=== PATIENT | female | born 1985 | race Caucasian/White ===

== ENCOUNTER 2023-02-02 08:47 | Outpatient (AMB) | payer OTHER, SELFPAY ==
--- NOTE | 2023-02-02 09:02 | A.OFFPC_ITS ---
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 Accompanied by: Mother Allergies ibuprofen Allergy (Severe, Verified 02/02/23 09:15) face swelling Medication List - Last Reconciled 02/02/23 by Jarvis Fisher PA-C etonogestrel (Nexplanon) subdermal Tobacco use date assessed: 02/02/23 Dental Screening Dental Screen Date: 02/02/23 Did you have a dental visit in the last 12 months?: No Did you have a dental problem in the last 6 months where you did not have access to dental care?: No Was dental information given to patient?: Patient has dentist HPI 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 Patient has past medical history of obesity. concerns--> patient concerned about her weight, she reports she has been trying to lose weight with being more physically active and adapting to better eating habits still has not been successful. Would like to try medication to help her with weight loss. Also has been dealing with left-sided sciatica for many years now and does have flares for time to time. She uses Tylenol and back stretches with some relief of her pain. 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 Vaccine : UTD With COVID vaccine , need Tdap , declines Flu PFSH Surgical History (Updated 02/02/23 @ 09:20 by Jarvis Fisher PA-C) Hx of cholecystectomy Family History (Updated 02/02/23 @ 09:20 by Jarvis Fisher PA-C) Maternal Aunt Breast cancer Father DMII (diabetes mellitus, type 2) Mother High cholesterol Social History (Updated 02/02/23 @ 09:21 by Jarvis Fisher PA-C) Housing: House Alcohol intake: current Alcohol intake frequency: a few times a month Patient Tobacco Use Status: Never used Tobacco e-Cigarette/Vaping Use: Never Used Substance Use Type: Marijuana service: No Current occupational status: employed 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 1. Little interest or pleasure in doing things: not at all 2. Feeling down, depressed, or hopeless: not at all 3. Trouble falling or staying asleep, or sleeping too much: not at all 4. Feeling tired or having little energy: not at all 5. Poor appetite or overeating: not at all 6. Feeling bad about yourself - or that you are a failure or have let yourself or your family down: not at all 7. Trouble concentrating on things, such as reading the newspaper or watching television: not at all 8. Moving or speaking so slowly that other people could have noticed. Or the opposite - being so fidgety or restless that you have been moving around a lot more than usual: not at all 9. Thoughts that you would be better off or of hurting yourself in some way: not at all Total score: 0 Depression Screening Interpretation: Negative 19450 - PHQ-9 Billing: Yes Source: Developed by Drs. Gustavo Juan, China Florian, Eder Jones and colleagues, with an educational gillian from [employer]. Thrive Questionnaire Date Thrive assessed: 02/02/23 I am a: Patient What is your living situation today?: I have a steady place to live Within the past 12 months, did the food you bought not last and you didn't have the money to get more?: Never true Within the past 12 months, did you worry whether your food would run out before you got money to buy more?: Never true Do you have trouble paying for medicines?: No Do you have trouble getting transportation to medical appointments?: No Do you have trouble paying your heating and electricity bill?: No Do you have trouble taking care of your child, family member or friend?: No Do you have trouble with day-to-day activities such as bathing, preparing meals, shopping, managing finances, etc.?: No Are you currently unemployed and looking for a job?: No Are you interested in more education?: No Please select the resources that you would like help with: None Currently or been in a relationship where the following occur: no concerns reported AUDIT C Alcohol Use Questionnaire (AUDIT-C) 1. How often do you have a drink containing alcohol?: Monthly or less 3. How often do you have six or more drinks on one occasion?: Less than monthly Total Score: 2 ROCCO-7 AMB Questionnaire ROCCO-7 Date ROCCO - 7 assessed: 02/02/23 Feeling nervous, anxious, or on edge: 0 = Not at all Not being able to stop or control worryin = Not at all Worrying too much about different things: 0 = Not at all Trouble relaxin = Not at all Being so restless that it is hard to sit still: 0 = Not at all Becoming easily annoyed or irritable: 0 = Not at all Feeling afraid as if something awful might happen: 0 = Not at all Total ROCCO-7 score (0-4 normal; 5-9 mild; 10-14 moderate; 15-21 severe): 0 Source: Developed by Drs. Gustavo Juan, China Florian, Eder Jones and colleagues, with an educational gillian from [employer]. ROCCO-7 Assessment Billing ROCCO-7 Assessment Tool: ROCCO-7 Assessment 55007 Review of Systems Const Denies body aches, Denies chills, Denies excessive sweating, Denies fatigue, Denies fever(s) and Denies headache(s) Eyes Denies blurry vision ENT Denies dysphagia, Denies vertigo, Denies dizziness, Denies headache(s), Denies hearing loss and Denies tinnitus Card Denies chest pain, Denies chest pain with activity, Denies syncope, Denies irregular heart rhythm and Denies dyspnea Resp Denies chest congestion, Denies cough, Denies hemoptysis, Denies dyspnea and Denies wheezing GI Denies abdominal pain, Denies melena, Denies hematochezia, Denies coffee ground emesis, Denies dysphagia, Denies diarrhea, Denies nausea and Denies vomiting Denies urinary frequency, Denies dysuria, Denies urinary hesitancy and Denies urinary urgency Musc Denies arthralgias, Denies limited range of motion, Denies muscle cramps and Denies muscle weakness Skin/Breast Denies rash and Denies skin ulcer Neuro Denies Abnormal speech present, Denies confusion, Denies vertigo, Denies dizziness, Denies syncope, Denies headache(s), Denies memory loss and Denies seizure-like activity Psych Denies anxiety, Denies confusion, Denies depression, Denies memory loss, Denies panic attacks and Denies paranoia Endo Denies excessive sweating, Denies fatigue, Denies flushing, Denies polydipsia and Denies polyuria Aller/Immun Denies wheezing Physical exam (Primary Care) Vital Signs: Last Vital Signs Pulse 82 02/02/23 09:03 BP 128/80 02/02/23 09:03 Pulse Ox 98 02/02/23 09:03 Oxygen Delivery Method Room Air 02/02/23 09:03 BMI result Body Mass Index 44.2 BMI Assessment/Plan discussion: High Tobacco/Smoking Status: Tobacco use Status Tobacco use date assessed 02/02/23 02/02/23 09:08 Patient Tobacco Use Status Never used Tobacco 02/02/23 09:21 e-Cigarette/Vaping Use Never Used 02/02/23 09:21 PHQ-9: PHQ-9 Score PHQ-9: Total score 0 02/02/23 09:27 Depression Screening Interpretation: Negative Thrive Assessment: Date of Thrive Assessment Date Thrive assessed 02/02/23 02/02/23 09:08 Currently or been in a relationship where the following occur: no concerns reported Const Other: OBESE General: cooperative, comfortable, no acute distress, alert and awake; No confusion Orientation/consciousness: oriented to person, oriented to place, patient oriented x3 and No confusion HENMT Head: Yes normocephalic Ears: external ears normal and TM's normal bilaterally Face and sinus: No sinus tenderness Mouth: Normal oral and palatal mucosa present and tongue normal Teeth and gingiva: dentition normal and gingiva normal Throat: Yes posterior oropharynx normal, Yes tonsils normal and Yes uvula midlin e Eyes Conjunctivae: conjunctivae normal Sclerae: sclerae normal Pupils: Equal, round and reactive pupils present EOM: EOMs intact bilaterally Direct Ophthalmoscopy: No no photophobia Neck Neck: Yes no lymphadenopathy, No tender and Yes no JVD Thyroid: Thyroid normal Carotids: no bruits Chest Chest palpation & inspection: no tenderness Resp Effort & Inspection: normal respiratory effort, no audible wheezes, not labored and no stridor Auscultation: no crackles, no rales, no rhonchi and no wheezes Cardio Jugular venous distension: no JVD Rate: regular rate, not bradycardic and not tachycardic Rhythm: regular rhythm Bruits: no carotid bruits Peripheral pulses: Peripheral pulses 2+ throughout GI Inspection: Yes normal to inspection, No abdominal wall ecchymosis and No visible herniation Palpation (GI): Soft to palpation, nontender, no guarding, not rigid and No hepatosplenomegaly present Auscultation: normoactive bowel sounds General: Yes no CVA tenderness Back/Spine/Pelvis Back: no CVA tenderness and No back tenderness Cervical Spine: cervical ROM normal Thoracic/Lumbar Spine: thoracic and lumbar spine normal to inspection, straight leg raise negative bilaterally, No thoraco-lumbar ROM limited and No lumbar spinal tenderness Skin Lesions: no lesions Rashes: no rashes Wounds: no wounds Neuro General: oriented to person, oriented to place, patient oriented x3, CN's II-XI intact bilaterally and No confusion Cranial nerves: Yes Equal, round and reactive pupils present and Yes Normal accommodation reflex present Cognition (Neuro): normal cognition Speech: No Abnormal speech present Gait exam (Neuro): Normal gait present Motor exam (neuro): 5/5 motor strength present throughout Extrem Right upper extremity: full ROM; no cyanosis Left upper extremity: full ROM; no cyanosis Right lower extremity: no edema Left lower extremity: no edema Psych Appearance: grossly normal Mental Status: mental status grossly normal Affect: normal affect Attitude: cooperative Thought process: Normal thought process present Assessment and Plan Assessment & Plan (1) Annual physical exam: Code(s): Z00.00 - Encounter for general adult medical examination without abnormal findings (2) Obese: Code(s): E66.9 - Obesity, unspecified Qualifiers: Body mass index: BMI 40.0-44.9 Obesity classification: adult class 3 (BMI >= 40) Obesity type: due to excess calories Serious obesity comorbidity presence: without serious comorbidity Qualified Code(s): E66.01 - Morbid (severe) obesity due to excess calories; Z68.41 - Body mass index [BMI] 40.0- 44.9, adult Plan: Patient does understand her BMI is over 40 and will continue working on being more physically active and adapting to better eating habits to reduce her weight. Offered her referral to weight management program though patient declines at this time though will consider. She is interested in starting p.o. medication to help her with appetite suppression. (3) Screening for diabetes mellitus (DM): Code(s): Z13.1 - Encounter for screening for diabetes mellitus (4) Sciatica, left side: Code(s): M54.32 - Sciatica, left side Plan: Patient has a long history of left-sided sciatica, does flare up on her a couple times a year. Does use lower back stretches and Tylenol. Will supply patient with a muscle relaxer to use during flare-ups. (5) Family history of high cholesterol: Code(s): Z83.42 - Family history of familial hypercholesterolemia Plan: Patient has a family history cholesterol, will check a fasting lipid panel Orders: Orders [facility]. Panel Fast Today Z13.1 - Encounter for screening for diabetes mellitus TSH reflex Free T4 Today E66.01 - Morbid (severe) obesity due to excess calories, Z68.41 - Body mass index [BMI] 40.0-44.9, adult Complete Blood Count no Diff Today Z13.1 - Encounter for screening for diabetes mellitus Lipid Panel Today Z83.42 - Family history of familial hypercholesterolemia PT Evaluation and Treatment Today M51.9 - Unspecified thoracic, thoracolumbar and lumbosacral intervertebral disc disorder, M54.32 - Sciatica, left side XR lumbar spine 2-3V Today M54.32 - Sciatica, left side Medications: New phentermine must administer 30 minutes before or 1-2 hours after breakfast 37.5 mg PO DAILY 28 days 28 caps 0RF E66.01 - Morbid (severe) obesity due to excess calories, Z68.41 - Body mass index [BMI] 40.0-44.9, adult baclofen 10 mg PO BEDTIME 15 days 15 tabs 0RF M54.32 - Sciatica, left side Coding Level of Care Code New Pt Prev Care 18-39yr([id number] Diagnoses Annual physical exam Z00.00 Obese E66.01; Z68.41 Body mass index: BMI 40.0-44.9 Obesity classification: adult class 3 (BMI >= 40) Obesity type: due to excess calories Serious obesity comorbidity presence: without serious comorbidity Screening for diabetes mellitus (DM) Z13.1 Sciatica, left side M54.32 Family history of high cholesterol Z83.42 Additional Codes ROCCO-7 Assessment Billing - ROCCO-7 Assessment Tool: ROCCO-7 Assessment 93204 ([id number])
[2023-02-02 09:03] VITALS: BP 128/80; PULSE 82; O2SAT 98; BMI 44.2
== END 2023-02-02 09:35 | disposition home or self-care (01) ==
LOC: HO.HMGH 08:47
PROVIDERS: PCP Physician Assistant; Visit Provider Physician Assistant
DX: Z00.00 Encounter for general adult medical examination without abnormal findings (principal); E66.01 Morbid (severe) obesity due to excess calories; Z68.41 Body mass index [BMI] 40.0-44.9, adult; Z83.42 Family history of familial hypercholesterolemia; Z13.1 Encounter for screening for diabetes mellitus; M54.32 Sciatica, left side
CPT/HCPCS: 99385

== ENCOUNTER 2023-02-14 08:38 | Outpatient (REF) | payer OTHER, SELFPAY ==
[2023-02-14 11:28] LABS: Hematocrit 43.4 % (37.0-47.0); Hemoglobin 14.4 g/dl (12.0-16.0); Mean Corpuscular HGB Conc 33.2 g/dl (31.0-35.0); Mean Corpuscular Hemoglobin 29.7 pg (27.0-33.0); Mean Corpuscular Volume 89.5 fL (80.0-98.0); Mean Platelet Volume 11.3 fL (9.4-12.3); Platelet Count 283 X10*3/uL (160-400); Red Blood Count 4.85 X10*6/uL (4.20-5.50); Red Cell Distribution Width 12.4 % (11.0-16.0); White Blood Count 7.1 X10*3/uL (4.8-10.8)
[2023-02-14 11:35] LABS: Alanine Aminotransferase 18 U/L (0-31); Albumin Level 4.3 g/dL (3.5-5.0); Alkaline Phosphatase 57 U/L (39-117); Anion Gap 20 (12-20); Aspartate Amino Transferase 15 U/L (5-31); Bilirubin Total 0.8 mg/dL (0.0-1.0); Blood Urea Nitrogen 12 mg/dL (9-16); Calcium 9.9 mg/dL (8.4-10.2); Carbon Dioxide 18 mmol/L (22-29); Chloride 106 mmol/L (96-108); Cholesterol 193 mg/dL; Estimated Glomerular Filt Rate > 60; Glucose Fasting 101 mg/dL (60-99); HDL Cholesterol 36 mg/dL; LDL Cholesterol Calculated 146 mg/dl; Potassium 4.9 mmol/L (3.3-5.1); Sodium 139 mmol/L (135-145); Total Protein 7.6 g/dL (6.5-8.0); Triglycerides 59 mg/dL
[2023-02-14 11:49] LABS: TSH reflex Free T4 0.81 uIU/mL (0.32-4.0)
== END 2023-02-14 08:39 | disposition home or self-care (01) ==
LOC: HO.HMGCLDS 08:38
PROVIDERS: PCP Physician Assistant; Visit Provider Physician Assistant
DX: Z13.1 Encounter for screening for diabetes mellitus (principal); E66.01 Morbid (severe) obesity due to excess calories; Z68.41 Body mass index [BMI] 40.0-44.9, adult; Z83.42 Family history of familial hypercholesterolemia; Z86.39 Personal history of other endocrine, nutritional and metabolic disease
CPT/HCPCS: 36415; 80053; 80061; 84443; 85027

== ENCOUNTER 2023-03-02 08:38 | Outpatient (AMB) | payer OTHER, SELFPAY ==
--- NOTE | 2023-03-02 08:46 | A.OFFPC_ITS ---
Vital Signs 03/02/23 08:47 Height 5 ft 2 in Weight 229 lb BMI 41.9 BP 130/86 Blood Pressure Location Lt brachial Position Sitting Pulse 85 Pulse Source Pulse Oximeter Pulse Oximetry (%) 97 Oxygen Delivery Method Room Air Intake Visit Reasons: 4 weeks f/u Allergies ibuprofen Allergy (Severe, Verified 03/02/23 08:56) face swelling Medication List - Last Reconciled 03/02/23 by Jarvis Fisher PA-C baclofen 10 mg PO BEDTIME 15 days etonogestrel (Nexplanon) subdermal phentermine 37.5 mg PO DAILY 28 days Tobacco use date assessed: 02/02/23 HPI 4 weeks f/u HPI Details Patient is a 37-year-old female here today for follow-up visit. At last visit we did discuss her weight and was willing to start phentermine to reducing weight. Has lost 12 lb since starting the medication. Only side effect she reports his dry mouth. Reviewed patient's labs and noted a slight elevation and fasting blood sugar at 101. Will continue working on lifestyle modifications to reduce her blood sugars. 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 1. Little interest or pleasure in doing things: not at all 2. Feeling down, depressed, or hopeless: not at all 3. Trouble falling or staying asleep, or sleeping too much: not at all 4. Feeling tired or having little energy: not at all 5. Poor appetite or overeating: not at all 6. Feeling bad about yourself - or that you are a failure or have let yourself or your family down: not at all 7. Trouble concentrating on things, such as reading the newspaper or watching television: not at all 8. Moving or speaking so slowly that other people could have noticed. Or the opposite - being so fidgety or restless that you have been moving around a lot more than usual: not at all 9. Thoughts that you would be better off or of hurting yourself in some way: not at all Total score: 0 Depression Screening Interpretation: Negative 01151 - PHQ-9 Billing: Yes Source: Developed by Drs. Gustavo Juan, China Florian, Eder Jones and colleagues, with an educational gillian from [employer]. Thrive Questionnaire Date Thrive assessed: 02/02/23 I am a: Patient What is your living situation today?: I have a steady place to live Within the past 12 months, did the food you bought not last and you didn't have the money to get more?: Never true Within the past 12 months, did you worry whether your food would run out before you got money to buy more?: Never true Do you have trouble paying for medicines?: No Do you have trouble getting transportation to medical appointments?: No Do you have trouble paying your heating and electricity bill?: No Do you have trouble taking care of your child, family member or friend?: No Do you have trouble with day-to-day activities such as bathing, preparing meals, shopping, managing finances, etc.?: No Are you currently unemployed and looking for a job?: No Are you interested in more education?: No Please select the resources that you would like help with: None Currently or been in a relationship where the following occur: no concerns reported AUDIT C Alcohol Use Questionnaire (AUDIT-C) 1. How often do you have a drink containing alcohol?: Monthly or less 3. How often do you have six or more drinks on one occasion?: Less than monthly Total Score: 2 ROCCO-7 AMB Questionnaire ROCCO-7 Date ROCCO - 7 assessed: 02/02/23 Feeling nervous, anxious, or on edge: 0 = Not at all Not being able to stop or control worryin = Not at all Worrying too much about different things: 0 = Not at all Trouble relaxin = Not at all Being so restless that it is hard to sit still: 0 = Not at all Becoming easily annoyed or irritable: 0 = Not at all Feeling afraid as if something awful might happen: 0 = Not at all Total ROCCO-7 score (0-4 normal; 5-9 mild; 10-14 moderate; 15-21 severe): 0 Source: Developed by Drs. Gustavo Juan, China Florian, Eder Jones and colleagues, with an educational gillian from [employer]. ROCCO-7 Assessment Billing ROCCO-7 Assessment Tool: ROCCO-7 Assessment 28948 Review of Systems Const Denies headache(s) Eyes Denies loss of vision ENT Denies vertigo, Denies dizziness, Denies headache(s) and Denies sore throat Card Denies chest pain, Denies leg edema and Denies lightheadedness Resp Denies cough, Denies hemoptysis and Denies wheezing GI Denies abdominal pain, Denies melena, Denies constipation, Denies diarrhea and Denies vomiting Denies urinary frequency, Denies dysuria and Denies urinary urgency Musc Denies arthralgias, Denies joint swelling, Denies numbness and Denies tingling Neuro Denies Abnormal speech present, Denies behavioral changes, Denies vertigo, Denies dizziness, Denies headache(s), Denies loss of vision, Denies memory loss, Denies numbness and Denies tingling Psych Denies anxiety, Denies behavioral changes, Denies depression, Denies memory loss and Denies panic attacks Jonathan/Lymph Denies easy bleeding and Denies easy bruising Aller/Immun Denies wheezing Physical exam (Primary Care) Vital Signs: Last Vital Signs Pulse 85 03/02/23 08:47 BP 130/86 03/02/23 08:47 Pulse Ox 97 03/02/23 08:47 Oxygen Delivery Method Room Air 03/02/23 08:47 BMI result Body Mass Index 41.9 BMI Assessment/Plan discussion: High Tobacco/Smoking Status: Tobacco use Status Tobacco use date assessed 02/02/23 03/02/23 08:51 Patient Tobacco Use Status Never used Tobacco 03/02/23 08:51 e-Cigarette/Vaping Use Never Used 03/02/23 08:51 PHQ-9: PHQ-9 Score PHQ-9: Total score 0 03/02/23 09:00 Depression Screening Interpretation: Negative Thrive Assessment: Date of Thrive Assessment Date Thrive assessed 02/02/23 03/02/23 08:51 Currently or been in a relationship where the following occur: no concerns reported Const General: healthy appearing, no acute distress, alert and awake Nutritional Appearance: well nourished Orientation/consciousness: oriented to person, oriented to place and oriented to time HENMT Ears: TM's normal bilaterally General nose exam: Normal nasal mucous membranes and turbinates present Eyes Conjunctivae: conjunctivae normal Sclerae: sclerae normal Pupils: Equal, round and reactive pupils present Neck Neck: Yes no lymphadenopathy and Yes no JVD Thyroid: Thyroid normal Carotids: no bruits Resp Effort & Inspection: normal respiratory effort and not tachypneic Auscultation: no crackles, no rales, no rhonchi and no wheezes Cardio Rate: regular rate Rhythm: regular rhythm Heart sounds: no murmurs and normal S1 and S2 GI Palpation (GI): Soft to palpation, nontender, no hepatomegaly and no splenomegaly Auscultation: normal bowel sounds Skin General skin exam: no rashes or lesions noted and dry skin Neuro General: oriented to person, oriented to place and oriented to time Cranial nerves: Yes Equal, round and reactive pupils present Speech: No Abnormal speech present Gait exam (Neuro): Normal gait present Motor exam (neuro): no tremor noted Extrem Right upper extremity: full ROM Left upper extremity: full ROM Right lower extremity: full ROM; no edema Left lower extremity: full ROM; no edema Psych Mental Status: mental status grossly normal Speech and movement: Normal speech and movement present Affect: normal affect Attitude: cooperative Thought process: Normal thought process present Assessment and Plan Assessment & Plan (1) Obese: Code(s): E66.9 - Obesity, unspecified Qualifiers: Body mass index: BMI 40.0-44.9 Obesity classification: adult class 3 (BMI >= 40) Obesity type: due to excess calories Serious obesity comorbidity presence: without serious comorbidity Qualified Code(s): E66.01 - Morbid (severe) obesity due to excess calories; Z68.41 - Body mass index [BMI] 40.0- 44.9, adult Plan: Have noted an excellent response to phentermine with 12 lb weight loss. She like to stay on the medication a few more months for further weight loss. Will follow-up in 3 months and discontinue medication (2) Impaired glucose metabolism: Code(s): R73.09 - Other abnormal glucose Plan: Noted slight elevation in fasting blood sugar. Will continue to work on lif estyle modifications on reducing high carbohydrate foods and continued with weight loss. Medications: Refilled phentermine must administer 30 minutes before or 1-2 hours after breakfast 37.5 mg PO DAILY 28 days 28 caps 3RF E66.01 - Morbid (severe) obesity due to excess calories, Z68.41 - Body mass index [BMI] 40.0-44.9, adult Coding Level of Care Code Est Pt Level 3 (77997) Diagnoses Obese E66.01; Z68.41 Body mass index: BMI 40.0-44.9 Obesity classification: adult class 3 (BMI >= 40) Obesity type: due to excess calories Serious obesity comorbidity presence: without serious comorbidity Impaired glucose metabolism R73.09 Additional Codes ROCCO-7 Assessment Billing - ROCCO-7 Assessment Tool: ROCCO-7 Assessment 48514 ([id number])
[2023-03-02 08:47] VITALS: BP 130/86; PULSE 85; O2SAT 97; BMI 41.9
== END 2023-03-02 09:10 | disposition home or self-care (01) ==
PROVIDERS: PCP Physician Assistant; Visit Provider Physician Assistant
DX: E66.01 Morbid (severe) obesity due to excess calories (principal); Z68.41 Body mass index [BMI] 40.0-44.9, adult; R73.09 Other abnormal glucose
CPT/HCPCS: 99213

== ENCOUNTER 2023-06-03 07:50 | Outpatient (AMB) | payer OTHER, SELFPAY ==
[2023-06-03 07:55] VITALS: BP 118/78; PULSE 80; O2SAT 98; BMI 38.6
--- NOTE | 2023-06-03 07:55 | MHC.PC.OV ---
Vital Signs 06/03/23 07:55 Height 5 ft 2 in Weight 211 lb BMI 38.6 BP 118/78 Blood Pressure Location Lt brachial Position Sitting Pulse 80 Pulse Source Pulse Oximeter Pulse Oximetry (%) 98 Oxygen Delivery Method Room Air Intake Visit Reasons: f/u weight check Allergies ibuprofen Allergy (Severe, Verified 06/08/23 08:11) face swelling Medication List - Last Reconciled 06/03/23 by Jarvis Fisher PA-C baclofen 10 mg PO BEDTIME 15 days etonogestrel (Nexplanon) subdermal phentermine 37.5 mg PO DAILY 28 days Tobacco use date assessed: 02/02/23 Dental Screening Dental Screen Date: 06/03/23 Did you have a dental visit in the last 12 months?: Yes Did you have a dental problem in the last 6 months where you did not have access to dental care?: No Was dental information given to patient?: Patient has dentist HPI f/u weight check HPI Details Patient is a 37-year-old female here today for follow-up visit. Has been on phentermine to help her kick start weight loss. She has now lost 30 lb since the summer 2022. She has been more physically active and now feeling much better. We did discuss he limited use of phentermine, will supply patient with 1 more month of phentermine than will wean off of this medication to see if she can sustain weight loss without medication. Of note does have a history of impaired fasting blood sugar. PLAN: Will Recheck fasting blood sugar not that she has lost 30 lb. Concern--> reports having intermittent left ear pain and congestion. Physical exam today does show erythematous TM. 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 1. Little interest or pleasure in doing things: not at all 2. Feeling down, depressed, or hopeless: not at all 3. Trouble falling or staying asleep, or sleeping too much: not at all 4. Feeling tired or having little energy: not at all 5. Poor appetite or overeating: not at all 6. Feeling bad about yourself - or that you are a failure or have let yourself or your family down: not at all 7. Trouble concentrating on things, such as reading the newspaper or watching television: not at all 8. Moving or speaking so slowly that other people could have noticed. Or the opposite - being so fidgety or restless that you have been moving around a lot more than usual: not at all 9. Thoughts that you would be better off or of hurting yourself in some way: not at all Total score: 0 Depression Screening Interpretation: Negative Depression Screening Done: Yes 07354 - PHQ-9 Billing: Yes Source: Developed by Drs. Gustavo Juan, China Florian, Eder Jones and colleagues, with an educational gillian from [employer]. Thrive Questionnaire Date Thrive assessed: 02/02/23 AUDIT C Alcohol Use Questionnaire (AUDIT-C) 1. How often do you have a drink containing alcohol?: Monthly or less 3. How often do you have six or more drinks on one occasion?: Less than monthly Total Score: 2 ROCCO-7 AMB Questionnaire ROCCO-7 Date ROCCO - 7 assessed: 02/02/23 Source: Developed by Drs. Gustavo Juan, China Florian, Eder Jones and colleagues, with an educational gillian from [employer]. Review of Systems Const Denies headache(s) Eyes Denies loss of vision ENT Denies vertigo, Denies dizziness, Denies headache(s) and Denies sore throat Card Denies chest pain, Denies leg edema and Denies lightheadedness Resp Denies cough, Denies hemoptysis and Denies wheezing GI Denies abdominal pain, Denies melena, Denies constipation, Denies diarrhea and Denies vomiting Denies urinary frequency, Denies dysuria and Denies urinary urgency Musc Denies arthralgias, Denies joint swelling, Denies numbness and Denies tingling Neuro Denies Abnormal speech present, Denies behavioral changes, Denies vertigo, Denies dizziness, Denies headache(s), Denies loss of vision, Denies memory loss, Denies numbness and Denies tingling Psych Denies anxiety, Denies behavioral changes, Denies depression, Denies memory loss and Denies panic attacks Jonathan/Lymph Denies easy bleeding and Denies easy bruising Aller/Immun Denies wheezing Physical exam (Primary Care) Vital Signs: Last Vital Signs Pulse 80 06/03/23 07:55 BP 118/78 06/03/23 07:55 Pulse Ox 98 06/03/23 07:55 Oxygen Delivery Method Room Air 06/03/23 07:55 BMI result Body Mass Index 38.6 BMI Assessment/Plan discussion: High Tobacco/Smoking Status: Tobacco use Status Tobacco use date assessed 02/02/23 06/03/23 08:00 Patient Tobacco Use Status Never used Tobacco 06/03/23 08:00 e-Cigarette/Vaping Use Never Used 06/03/23 08:00 PHQ-9: PHQ-9 Score PHQ-9: Total score 0 06/03/23 08:08 Depression Screening Interpretation: Negative Thrive Assessment: Date of Thrive Assessment Date Thrive assessed 02/02/23 06/03/23 08:00 Const Other: Obese though weight loss noted General: healthy appearing, no acute distress, alert and awake Nutritional Appearance: well nourished Orientation/consciousness: oriented to person, oriented to place and oriented to time HENMT Other: LEFT HIP PANIC MEMBRANE SLIGHTLY ERYTHEMATOUS. General nose exam: Normal nasal mucous membranes and turbinates present Eyes Conjunctivae: conjunctivae normal Sclerae: sclerae normal Pupils: Equal, round and reactive pupils present Neck Neck: Yes no lymphadenopathy and Yes no JVD Thyroid: Thyroid normal Carotids: no bruits Resp Effort & Inspection: normal respiratory effort and not tachypneic Auscultation: no crackles, no rales, no rhonchi and no wheezes Cardio Rate: regular rate Rhythm: regular rhythm Heart sounds: no murmurs and normal S1 and S2 GI Palpation (GI): Soft to palpation, nontender, no hepatomegaly and no splenomegaly Auscultation: normal bowel sounds Skin General skin exam: no rashes or lesions noted and dry skin Neuro General: oriented to person, oriented to place and oriented to time Cranial nerves: Yes Equal, round and reactive pupils present Speech: No Abnormal speech present Gait exam (Neuro): Normal gait present Motor exam (neuro): no tremor noted Extrem Right upper extremity: full ROM Left upper extremity: full ROM Right lower extremity: full ROM; no edema Left lower extremity: full ROM; no edema Psych Mental Status: mental status grossly normal Speech and movement: Normal speech and movement present Affect: normal affect Attitude: cooperative Thought process: Normal thought process present Assessment and Plan Assessment & Plan (1) Obese: Code(s): E66.9 - Obesity, unspecified Qualifiers: Body mass index: BMI 40.0-44.9 Obesity classification: adult class 3 (BMI >= 40) Obesity type: due to excess calories Serious obesity comorbidity presence: without serious comorbidity Qualified Code(s): E66.01 - Morbid (severe) obesity due to excess calories; Z68.41 - Body mass index [BMI] 40.0-44.9, adult Plan: Patient has lost significant amount of weight since January of 2023. Has been on phentermine. Reports being more physically active and adapting to better eating habits. She will do another 4 weeks of phentermine and discontinue medication. Will follow-up in 3 months to see if she can continue maintain weight loss. She has a goal weight to be below 200. (2) Impaired glucose metabolism: Code(s): R73.09 - Other abnormal glucose Plan: Patient's most recent labs showing slightly elevated fasting blood sugar. Has lost 30 lb since starting new weight loss medication. Has been more physically active. Will recheck fasting blood sugar and A1c in 3 months (3) Otitis media: Code(s): H66.90 - Otitis media, unspecified, unspecified ear Qualifiers: Chronicity: acute Laterality: left Otitis media type: serous Recurrence: non-recurrent Qualified Code(s): H65.02 - Acute serous otitis media, left ear Plan: Patient reports intermittent left ear pain. She does report getting infections as a child. Physical exam does show an left erythematous TM. Orders: Orders Comprehensive [place]. Panel Fast 06/03/23 R73.09 - Other abnormal glucose Hemoglobin A1c 06/03/23 R73.09 - Other abnormal glucose Medications: New amoxicillin 500 mg PO Q8H 5 days 15 caps 0RF H66.90 - Otitis media, unspecified, unspecified ear Discontinued baclofen Discontinued Reason: Doctor's Order 10 mg PO BEDTIME 15 days 15 tabs 0RF M54.32 - Sciatica, left side Coding Level of Care Code Est Pt Level 4 (73269) Diagnoses Class 3 severe obesity due to excess calories without serious comorbidity with body mass index (BMI) of 40.0 to 44.9 in adult E66.01; Z68.41 Body mass index: BMI 40.0-44.9 Obesity classification: adult class 3 (BMI >= 40) Obesity type: due to excess calories Serious obesity comorbidity presence: without serious comorbidity Impaired glucose metabolism R73.09 Non-recurrent acute serous otitis media of left ear H65.02 Chronicity: acute Laterality: left Otitis media type: serous Recurrence: non-recurrent
== END 2023-06-03 08:23 | disposition home or self-care (01) ==
PROVIDERS: PCP Physician Assistant; Visit Provider Physician Assistant
DX: E66.01 Morbid (severe) obesity due to excess calories (principal); Z68.41 Body mass index [BMI] 40.0-44.9, adult; R73.09 Other abnormal glucose; H65.02 Acute serous otitis media, left ear
CPT/HCPCS: 99214

== ENCOUNTER 2023-09-05 09:29 | Outpatient (REF) | payer OTHER, SELFPAY ==
[2023-09-05 11:52] LABS: Estimated Average Glucose 91 mg/dL; Hemoglobin A1c % 4.8 % (<6.0)
[2023-09-05 11:55] LABS: Alanine Aminotransferase 15 U/L (0-31); Albumin Level 3.9 g/dL (3.5-5.0); Alkaline Phosphatase 62 U/L (39-117); Anion Gap 11 (12-20); Aspartate Amino Transferase 13 U/L (5-31); Bilirubin Total 0.6 mg/dL (0.0-1.0); Blood Urea Nitrogen 13 mg/dL (9-16); Calcium 9.5 mg/dL (8.4-10.2); Carbon Dioxide 25 mmol/L (22-29); Chloride 107 mmol/L (96-108); Estimated Glomerular Filt Rate > 60; Glucose Fasting 96 mg/dL (60-99); Potassium 4.1 mmol/L (3.3-5.1); Sodium 139 mmol/L (135-145); Total Protein 7.1 g/dL (6.5-8.0)
== END 2023-09-05 09:30 | disposition home or self-care (01) ==
LOC: HO.HMGCLDS 09:29
PROVIDERS: PCP Physician Assistant; Visit Provider Physician Assistant
DX: R73.09 Other abnormal glucose (principal)
CPT/HCPCS: 36415; 80053; 83036

== ENCOUNTER 2023-09-09 08:06 | Outpatient (AMB) | payer OTHER, SELFPAY ==
[2023-09-09 08:24] VITALS: BP 120/78; BMI 38.8
--- NOTE | 2023-09-09 08:24 | A.OFFPC_ITS ---
Vital Signs 09/09/23 08:24 Height 5 ft 2 in Weight 212 lb BMI 38.8 BP 120/78 Blood Pressure Location Lt brachial Position Sitting Intake Visit Reasons: f/u IGM Intake Note: Patient here for a follow up IGM Ind[employer] Required: No Accompanied by: Self / Same As Patient Allergies ibuprofen Allergy (Severe, Verified 09/09/23 08:32) face swelling Medication List - Last Reconciled 09/09/23 by Jarvis Fisher PA-C etonogestrel (Nexplanon) subdermal phentermine 15 mg PO DAILY 21 days Tobacco use date assessed: 09/09/23 Dental Screening Dental Screen Date: 09/09/23 Did you have a dental visit in the last 12 months?: Yes Did you have a dental problem in the last 6 months where you did not have access to dental care?: No Was dental information given to patient?: Patient has dentist HPI f/u IGM HPI Details Patient is a 37-year-old female here today for follow-up visit. Has been on phentermine to help her kick start weight loss. She has now lost 30 lb since the summer 2022. Weight loss has plateaued since reducing her dose of phentermine. She continues to adapt to better eating habits and remains physically active. She is using phentermine 15 mg on an [id number] basis and weight loss has plateaued. She would like to continue the medication for now to see if she can regain some weight loss. We did discuss weight management program referral though patient declines at this time. Impaired glucose metabolism: Most recent fasting labs showing much improved fasting glucose. 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 1. Little interest or pleasure in doing things: not at all 2. Feeling down, depressed, or hopeless: not at all 3. Trouble falling or staying asleep, or sleeping too much: not at all 4. Feeling tired or having little energy: not at all 5. Poor appetite or overeating: not at all 6. Feeling bad about yourself - or that you are a failure or have let yourself or your family down: not at all 7. Trouble concentrating on things, such as reading the newspaper or watching television: not at all 8. Moving or speaking so slowly that other people could have noticed. Or the opposite - being so fidgety or restless that you have been moving around a lot more than usual: not at all 9. Thoughts that you would be better off or of hurting yourself in some wa y: not at all Total score: 0 Depression Screening Interpretation: Negative Depression Screening Done: Yes 50199 - PHQ-9 Billing: Yes Source: Developed by Drs. Gustavo Juan, China Florian, Eder Jones and colleagues, with an educational gillian from [employer]. Thrive Questionnaire Date Thrive assessed: 09/09/23 I am a: Patient What is your living situation today?: I have a steady place to live Within the past 12 months, did the food you bought not last and you didn't have the money to get more?: Never true Within the past 12 months, did you worry whether your food would run out before you got money to buy more?: Never true Do you have trouble paying for medicines?: No Do you have trouble getting transportation to medical appointments?: No Do you have trouble paying your heating and electricity bill?: No Do you have trouble taking care of your child, family member or friend?: No Do you have trouble with day-to-day activities such as bathing, preparing meals, shopping, managing finances, etc.?: No Are you currently unemployed and looking for a job?: No Are you interested in more education?: No Please select the resources that you would like help with: None Currently or been in a relationship where the following occur: no concerns reported THRIVE Score: 0 AUDIT C Alcohol Use Questionnaire (AUDIT-C) 1. How often do you have a drink containing alcohol?: 2-4 times a month 2. How many drinks containing alcohol do you have on a typical day when you are drinking?: 1 or 2 3. How often do you have six or more drinks on one occasion?: Never Total Score: 2 ROCCO-7 AMB Questionnaire ROCCO-7 Date ROCCO - 7 assessed: 09/09/23 Feeling nervous, anxious, or on edge: 0 = Not at all Not being able to stop or control worryin = Not at all Worrying too much about different things: 0 = Not at all Trouble relaxin = Not at all Being so restless that it is hard to sit still: 0 = Not at all Becoming easily annoyed or irritable: 0 = Not at all Feeling afraid as if something awful might happen: 0 = Not at all Total ROCCO-7 score (0-4 normal; 5-9 mild; 10-14 moderate; 15-21 severe): 0 Source: Developed by Drs. Gustavo Juan, China Florian, Eder Jones and colleagues, with an educational gillian from [employer]. ROCCO-7 Assessment Billing ROCCO-7 Assessment Tool: ROCCO-7 Assessment 42617 Physical exam (Primary Care) Vital Signs: Last Vital Signs BP 120/78 09/09/23 08:24 BMI result Body Mass Index 38.8 Tobacco/Smoking Status: Tobacco use Status Tobacco use date assessed 09/09/23 09/09/23 08:29 Patient Tobacco Use Status Never used Tobacco 09/09/23 08:29 e-Cigarette/Vaping Use Never Used 09/09/23 08:29 PHQ-9: PHQ-9 Score PHQ-9: Total score 0 09/09/23 08:29 Depression Screening Interpretation: Negative Thrive Assessment: Date of Thrive Assessment Date Thrive assessed 09/09/23 09/09/23 08:29 Currently or been in a relationship where the following occur: no concerns reported Assessment and Plan Assessment & Plan (1) Obese: Code(s): E66.9 - Obesity, unspecified Qualifiers: Obesity type: due to excess calories Obesity classification: adult class 3 (BMI >= 40) Serious obesity comorbidity presence: without serious comorbidity Body mass index: BMI 40.0-44.9 Qualified Code(s): E66.01 - Morbid (severe) obesity due to excess calories; Z68.41 - Body mass index [BMI] 40.0- 44.9, adult Plan: Patient's BMI remains above 30, has been reducing her dose of phentermine and weight loss has plateaued. . Has lost significant amount weight with phentermine and like to continue this medication for now and increase her intensity of workouts We did discuss perhaps being referred to weight management program and patient is considering. (2) Impaired glucose metabolism: Code(s): R73.09 - Other abnormal glucose Plan: Fasting blood sugars have normalized. A1c of 4.8. Continue to follow fasting blood sugar Orders: Orders Comprehensive [place]. Panel Fast Today R73.09 - Other abnormal glucose Medications: Changed From phentermine must administer 2 hours after breakfast 15 mg PO DAILY 21 days 21 caps 0RF E66.01 - Morbid (severe) obesity due to excess calories, Z68.41 - Body mass index [BMI] 40.0-44.9, adult To phentermine must administer 2 hours after breakfast 15 mg PO DAILY 30 days 30 caps 2RF E66.01 - Morbid (severe) obesity due to excess calories, Z68.41 - Body mass index [BMI] 40.0-44.9, adult Coding Level of Care Code Est Pt Level 4 (02231) Diagnoses Class 3 severe obesity due to excess calories without serious comorbidity with body mass index (BMI) of 40.0 to 44.9 in adult E66.01; Z68.41 Obesity type: due to excess calories Obesity classification: adult class 3 (BMI >= 40) Serious obesity comorbidity presence: without serious comorbidity Body mass index: BMI 40.0-44.9 Impaired glucose metabolism R73.09 Additional Codes ROCCO-7 Assessment Billing - ROCCO-7 Assessment Tool: ROCCO-7 Assessment [id number] ([id number])
== END 2023-09-09 08:54 | disposition home or self-care (01) ==
PROVIDERS: PCP Physician Assistant; Visit Provider Physician Assistant
DX: E66.01 Morbid (severe) obesity due to excess calories (principal); Z68.41 Body mass index [BMI] 40.0-44.9, adult; R73.09 Other abnormal glucose
CPT/HCPCS: 99214

== ENCOUNTER 2024-02-06 07:55 | Outpatient (REF) | payer OTHER, SELFPAY ==
[2024-02-06 11:54] LABS: Alanine Aminotransferase 13 U/L (0-31); Albumin Level 4.3 g/dL (3.5-5.0); Alkaline Phosphatase 57 U/L (39-117); Anion Gap 13 (12-20); Aspartate Amino Transferase 17 U/L (5-31); Blood Urea Nitrogen 9 mg/dL (9-16); Calcium 9.5 mg/dL (8.4-10.2); Carbon Dioxide 24 mmol/L (22-29); Chloride 107 mmol/L (96-108); Estimated Glomerular Filt Rate > 60; Glucose Fasting 92 mg/dL (60-99); Potassium 4.5 mmol/L (3.3-5.1); Sodium 139 mmol/L (135-145); Total Protein 7.3 g/dL (6.5-8.0)
== END 2024-02-06 07:56 | disposition home or self-care (01) ==
LOC: HO.HMGCLDS 07:55
PROVIDERS: PCP Physician Assistant; Visit Provider Physician Assistant
DX: R73.09 Other abnormal glucose (principal)
CPT/HCPCS: 36415; 80053

== ENCOUNTER 2024-02-11 08:49 | Outpatient (AMB) | payer OTHER, SELFPAY ==
[2024-02-11 08:50] VITALS: BP 128/70; PULSE 80; O2SAT 99; BMI 35.8
--- NOTE | 2024-02-11 08:50 | MHC.PC.OV ---
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 She has now lost 40 lb since the summer 2022. She continues to adapt to better eating habits and remains physically active. She is using phentermine 15 mg on an and a 3 times per week basis continues to lose weight. . We did discuss weight management program referral though patient declines at this time. Impaired glucose metabolism: Most recent fasting labs showing much improved fasting glucose. 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 a PLANT MAINTENANCE ENGINEER at [facility] in [place] in his up-to-date with Pap screening Vaccine : UTD With COVID vaccine , UTD td, declines Flu Laboratory Tests 02/14/23 02/06/24 08:47 08:02 Creatinine 0.75 Fasting Glucose 101 H 92 PFSH Surgical History Hx of cholecystectomy Family History Maternal Aunt Breast cancer Father DMII (diabetes mellitus, type 2) Mother High cholesterol Social History (Updated 02/11/24 @ 08:59 by Jarvis Fisher PA-C) Housing: House Alcohol intake: current Alcohol intake frequency: a few times a month Patient Tobacco Use Status: Never used Tobacco e-Cigarette/Vaping Use: Never Used Substance Use Type: Marijuana service: No Current occupational status: employed 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 Gustavo Juan, China Florian, Eder Jones and colleagues, with an educational gillian from [employer]. Review of Systems Const Denies body aches, Denies chills, Denies excessive sweating, Denies fatigue, Denies fever(s) and Denies headache(s) Eyes Denies blurry vision ENT Denies dysphagia, Denies vertigo, Denies dizziness, Denies headache(s), Denies hearing loss and Denies tinnitus Card Denies chest pain, Denies chest pain with activity, Denies syncope, Denies irregular heart rhythm and Denies dyspnea Resp Denies chest congestion, Denies cough, Denies hemoptysis, Denies dyspnea and Denies wheezing GI Denies abdominal pain, Denies melena, Denies hematochezia, Denies coffee ground emesis, Denies dysphagia, Denies diarrhea, Denies nausea and Denies vomiting Denies urinary frequency, Denies dysuria, Denies urinary hesitancy and Denies urinary urgency Musc Denies arthralgias, Denies limited range of motion, Denies muscle cramps and Denies muscle weakness Skin/Breast Denies rash and Denies skin ulcer Neuro Denies Abnormal speech present, Denies confusion, Denies vertigo, Denies dizziness, Denies syncope, Denies headache(s), Denies memory loss and Denies seizure-like activity Psych Denies anxiety, Denies confusion, Denies depression, Denies memory loss, Denies panic attacks and Denies paranoia Endo Denies excessive sweating, Denies fatigue, Denies flushing, Denies polydipsia and Denies polyuria Aller/Immun Denies wheezing Physical exam (Primary Care) Vital Signs: Last Vital Signs Pulse 80 02/11/24 08:50 BP 128/70 02/11/24 08:50 Pulse Ox 99 02/11/24 08:50 Oxygen Delivery Method Room Air 02/11/24 08:50 BMI result Body Mass Index 35.8 Tobacco/Smoking Status: Tobacco use Status Tobacco use date assessed 09/09/23 02/11/24 08:51 Patient Tobacco Use Status Never used Tobacco 02/11/24 08:59 e-Cigarette/Vaping Use Never Used 02/11/24 08:59 Thrive Assessment: Date of Thrive Assessment Date Thrive assessed 09/09/23 02/11/24 08:51 Const General: cooperative, comfortable, no acute distress, alert and awake; No confusion Orientation/consciousness: oriented to person, oriented to place, patient oriented x3 and No confusion HENMT Head: Yes normocephalic Ears: external ears normal and TM's normal bilaterally Face and sinus: No sinus tenderness Mouth: Normal oral and palatal mucosa present and tongue normal Teeth and gingiva: dentition normal and gingiva normal Throat: Yes posterior oropharynx normal, Yes tonsils normal and Yes uvula midline Eyes Conjunctivae: conjunctivae normal Sclerae: sclerae normal Pupils: Equal, round and reactive pupils present EOM: EOMs intact bilaterally Direct Ophthalmoscopy: No no photophobia Neck Neck: Yes no lymphadenopathy, No tender and Yes no JVD Thyroid: Thyroid normal Carotids: no bruits Chest Chest palpation & inspection: no tenderness Resp Effort & Inspection: normal respiratory effort, no audible wheezes, not labored and no stridor Auscultation: no crackles, no rales, no rhonchi and no wheezes Cardio Jugular venous distension: no JVD Rate: regular rate, not bradycardic and not tachycardic Rhythm: regular rhythm Bruits: no carotid bruits Peripheral pulses: Peripheral pulses 2+ throughout GI Inspection: Yes normal to inspection, No abdominal wall ecchymosis and No visible herniation Palpation (GI): Soft to palpation, nontender, no guarding, not rigid and No hepatosplenomegaly present Auscultation: normoactive bowel sounds General: Yes no CVA tenderness Back/Spine/Pelvis Back: no CVA tenderness and No back tenderness Cervical Spine: cervical ROM normal Thoracic/Lumbar Spine: thoracic and lumbar spine normal to inspection, straight leg raise negative bilaterally, No thoraco-lumbar ROM limited and No lumbar spinal tenderness Skin Lesions: no lesions Rashes: no rashes Wounds: no wounds Neuro General: oriented to person, oriented to place, patient oriented x3, CN's II-XI intact bilaterally and No confusion Cranial nerves: Yes Equal, round and reactive pupils present and Yes Normal accommodation reflex present Cognition (Neuro): normal cognition Speech: No Abnormal speech present Gait exam (Neuro): Normal gait present Motor exam (neuro): 5/5 motor strength present throughout Extrem Right upper extremity: full ROM; no cyanosis Left upper extremity: full ROM; no cyanosis Right lower extremity: no edema Left lower extremity: no edema Psych Appearance: grossly normal Mental Status: mental status grossly normal Affect: normal affect Attitude: cooperative Thought process: Normal thought process present Assessment and Plan Assessment & Plan (1) Annual physical exam: Code(s): Z00.00 - Encounter for general adult medical examination without abnormal findings (2) Obese: Code(s): E66.9 - Obesity, unspecified Qualifiers: Body mass index: BMI 35.0-35.9 Obesity classification: adult class 2 (BMI 35 - 39.9) Obesity type: due to excess calories Serious obesity comorbidity presence: without serious comorbidity Qualified Code(s): E66.09 - Other obesity due to excess calories; Z68.35 - Body mass index [BMI] 35.0-35.9, adult Plan: Has lost a significant amount of weight with the use of phentermine. Now using phentermine only 3 times a week. She has met her goal weight of below 200. BMI now at 35 from about 40. She will continue with phentermine on a 3 times per week basis to maintain her weight loss. She has no side effects from the medication. (3) Impaired glucose metabolism: Code(s): R73.09 - Other abnormal glucose Plan: Fasting blood sugars have normalized. A1c of 4.8. Continue to follow fasting blood sugar Medications: Refilled phentermine must administer 2 hours after breakfast 15 mg PO DAILY 30 caps 2RF 30 days E66.01 - Morbid (severe) obesity due to excess calories, Z68.41 - Body mass index [BMI] 40.0-44.9, adult Coding Level of Care Code Est Pt Prev Care 18-39y(59526) Diagnoses Annual physical exam Z00.00 Class 2 obesity due to excess calories without serious comorbidity with body mass index (BMI) of 35.0 to 35.9 in adult E66.09; Z68.35 Body mass index: BMI 35.0-35.9 Obesity classification: adult class 2 (BMI 35 - 39.9) Obesity type: due to excess calories Serious obesity comorbidity presence: without serious comorbidity Impaired glucose metabolism R73.09
== END 2024-02-11 09:07 | disposition home or self-care (01) ==
PROVIDERS: PCP Physician Assistant; Visit Provider Physician Assistant
DX: Z00.00 Encounter for general adult medical examination without abnormal findings (principal); E66.09 Other obesity due to excess calories; Z68.35 Body mass index [BMI] 35.0-35.9, adult; R73.09 Other abnormal glucose
CPT/HCPCS: 99395

== ENCOUNTER 2024-10-11 08:37 | Outpatient (AMB) | payer OTHER, SELFPAY ==
--- NOTE | 2024-10-11 08:46 | MHC.PC.OV ---
Vital Signs 10/11/24 08:48 10/11/24 09:03 Height 5 ft 2 in Weight 206 lb 8 oz BMI 37.8 BP 140/80 H 132/82 Blood Pressure Location Lt brachial Position Sitting Pulse 112 H Pulse Source Pulse Oximeter Temp 97.3 F Temp Source Temporal Artery Scan Pulse Oximetry (%) 90 L Oxygen Delivery Method Room Air Intake Visit Reasons: weight loss f/u Intake Note: Patient is here to follow up on weight loss. Psychiatric Tech Required: No Pediatric Radiologist: Not Required per policy Accompanied by: Self / Same As Patient Allergies ibuprofen Allergy (Severe, Verified 10/11/24 08:59) face swelling Medication List - Last Reconciled 10/11/24 by Jarvis Fisher PA-C etonogestrel (Nexplanon) subdermal Tobacco use date assessed: 10/11/24 Dental Screening Dental Screen Date: 10/11/24 Did you have a dental visit in the last 12 months?: Yes Did you have a dental problem in the last 6 months where you did not have access to dental care?: No Was dental information given to patient?: Patient has dentist HPI weight loss f/u HPI Details Patient is a 39-year-old female here today for follow-up visit. Patient has a past medical history significant for obesity and impaired glucose metabolism. Has been on phentermine to help her kick start weight loss. She continues to adapt to better eating habits and remains physically active. She originally was able to lose weight though when in often phentermine she is noted to have some weight gain. For now she would like to stay off of phentermine and tried to work on lifestyle and dietary modifications. Has upcoming annual physical in January of 2025 and will recheck her fasting labs. 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 1. Little interest or pleasure in doing things: not at all 2. Feeling down, depressed, or hopeless: not at all 3. Trouble falling or staying asleep, or sleeping too much: not at all 4. Feeling tired or having little energy: not at all 5. Poor appetite or overeating: not at all 6. Feeling bad about yourself - or that you are a failure or have let yourself or your family down: not at all 7. Trouble concentrating on things, such as reading the newspaper or watching television: not at all 8. Moving or speaking so slowly that other people could have noticed. Or the opposite - being so fidgety or restless that you have been moving around a lot more than usual: not at all 9. Thoughts that you would be better off or of hurting yourself in some way: not at all Total score: 0 Depression Screening Interpretation: Negative Depression Screening Done: Yes 94762 - PHQ-9 Billing: Yes Source: Developed by Drs. Gustavo Juan, China Florian, Eder Jones and colleagues, with an educational gillian from [employer]. Thrive Questionnaire Date Thrive assessed: 10/11/24 I am a: Patient What is your living situation today?: I have a steady place to live Within the past 12 months, did the food you bought not last and you didn't have the money to get more?: Never true Within the past 12 months, did you worry whether your food would run out before you got money to buy more?: Never true Do you have trouble paying for medicines?: No Do you have trouble getting transportation to medical appointments?: No Do you have trouble paying your heating and electricity bill?: No Do you have trouble taking care of your child, family member or friend?: No Do you have trouble with day-to-day activities such as bathing, preparing meals, shopping, managing finances, etc.?: No Are you currently unemployed and looking for a job?: No Are you interested in more education?: No Please select the resources that you would like help with: None Currently or been in a relationship where the following occur: No concerns reported THRIVE Score: 0 AUDIT C Alcohol Use Questionnaire (AUDIT-C) 2. How many drinks containing alcohol do you have on a typical day when you are drinking?: 1 or 2 3. How often do you have six or more drinks on one occasion?: Less than monthly Total Score: 1 ROCCO-7 AMB Questionnaire ROCCO-7 Date ROCCO - 7 assessed: 10/11/24 Feeling nervous, anxious, or on edge: 0 = Not at all Not being able to stop or control worryin = Not at all Worrying too much about different things: 0 = Not at all Trouble relaxin = Not at all Being so restless that it is hard to sit still: 0 = Not at all Becoming easily annoyed or irritable: 0 = Not at all Feeling afraid as if something awful might happen: 0 = Not at all Total ROCCO-7 score (0-4 normal; 5-9 mild; 10-14 moderate; 15-21 severe): 0 Source: Developed by Drs. Gustavo Juan, China Florian, Eder Jones and colleagues, with an educational gillian from [employer]. Review of Systems Const Denies headache(s) Eyes Denies loss of vision ENT Denies vertigo, Denies dizziness, Denies headache(s) and Denies sore throat Card Denies chest pain, Denies leg edema and Denies lightheadedness Resp Denies cough, Denies hemoptysis and Denies wheezing GI Denies abdominal pain, Denies melena, Denies constipation, Denies diarrhea and Denies vomiting Denies urinary frequency, Denies dysuria and Denies urinary urgency Musc Denies arthralgias, Denies joint swelling, Denies numbness and Denies tingling Neuro Denies Abnormal speech present, Denies behavioral changes, Denies vertigo, Denies dizziness, Denies headache(s), Denies loss of vision, Denies memory loss, Denies numbness and Denies tingling Psych Denies anxiety, Denies behavioral changes, Denies depression, Denies memory loss and Denies panic attacks Ojnathan/Lymph Denies easy bleeding and Denies easy bruising Aller/Immun Denies wheezing Physical exam (Primary Care) Vital Signs: Last Vital Signs Temp 97.3 F 10/11/24 08:48 Pulse 112 H 10/11/24 08:48 BP 140/80 H 10/11/24 08:48 Pulse Ox 90 L 10/11/24 08:48 Oxygen Delivery Method Room Air 10/11/24 08:48 BMI result Body Mass Index 37.8 BMI Assessment/Plan discussion: High BMI High, discussed plan: lifestyle, weight reduction, dietary and physical activity Tobacco/Smoking Status: Tobacco use Status Tobacco use date assessed 10/11/24 10/11/24 08:53 Patient Tobacco Use Status Never used Tobacco 10/11/24 08:53 e-Cigarette/Vaping Use Never Used 10/11/24 08:53 PHQ-9: PHQ-9 Score PHQ-9: Total score 0 10/11/24 08:53 Depression Screening Interpretation: Negative Thrive Assessment: Date of Thrive Assessment Date Thrive assessed 10/11/24 10/11/24 08:53 Currently or been in a relationship where the following occur: No concerns reported Const General: healthy appearing, no acute distress, alert and awake Nutritional Appearance: well nourished Orientation/consciousness: oriented to person, oriented to place and oriented to time HENMT Ears: TM's normal bilaterally General nose exam: Normal nasal mucous membranes and turbinates present Eyes Conjunctivae: conjunctivae normal Sclerae: sclerae normal Pupils: Equal, round and reactive pupils present Neck Neck: Yes no lymphadenopathy and Yes no JVD Thyroid: Thyroid normal Carotids: no bruits Resp Effort & Inspection: normal respiratory effort and not tachypneic Auscultation: no crackles, no rales, no rhonchi and no wheezes Cardio Rate: regular rate Rhythm: regular rhythm Heart sounds: no murmurs and normal S1 and S2 GI Palpation (GI): Soft to palpation, nontender, no hepatomegaly and no splenomegaly Auscultation: normal bowel sounds Skin General skin exam: no rashes or lesions noted and dry skin Neuro General: oriented to person, oriented to place and oriented to time Cranial nerves: Yes Equal, round and reactive pupils present Speech: No Abnormal speech present Gait exam (Neuro): Normal gait present Motor exam (neuro): no tremor noted Extrem Right upper extremity: full ROM Left upper extremity: full ROM Right lower extremity: full ROM; no edema Left lower extremity: full ROM; no edema Psych Mental Status: mental status grossly normal Speech and movement: Normal speech and movement present Affect: normal affect Attitude: cooperative Thought process: Normal thought process present Coding Level of Care Code Est Pt Level 4 (26924) Diagnoses Impaired glucose metabolism R73.09 Class 2 obesity E66.812 Additional Codes PHQ-9 - 11095 - PHQ-9 Billing: Yes ([id number]) Assessment & Plan Assessment & Plan (1) Impaired glucose metabolism: Code(s): R73.09 - Other abnormal glucose Category: Medical Plan: Patient has a history of impaired glucose metabolism. Will recheck fasting blood work in A1c. (2) Class 2 obesity: Code(s): E66.812 - Obesity, class 2 Category: Medical Plan: Patient does understand her BMI is over 35 and will work on being more physically active and adapting to better eating habits to reduce her weight. Was able to lose significant amount of weight with phentermine. Has been off of phentermine for few weeks now and unfortunately noted to have gained some weight. She will like to continue being off of medication and work on lifestyle and dietary modifications. Orders: Orders Comprehensive [place]. Panel Fast Today R73.09 - Other abnormal glucose Hemoglobin A1c Today R73.09 - Other abnormal glucose
[2024-10-11 08:48] VITALS: BP 140/80; PULSE 112; TEMP 36.3; O2SAT 90; BMI 37.8
[2024-10-11 09:03] VITALS: BP 132/82
== END 2024-10-11 09:07 | disposition home or self-care (01) ==
LOC: HO.HMCH 08:38
PROVIDERS: PCP Physician Assistant; Visit Provider Physician Assistant
DX: R73.09 Other abnormal glucose (principal); E66.812 Obesity, class 2; Z68.37 Body mass index [BMI] 37.0-37.9, adult

== ENCOUNTER → 2024-10-11 08:37 | Outpatient (BNVA) | payer OTHER, SELFPAY | PROVIDERS: PCP Physician Assistant; Visit Provider Physician Assistant | DX: E66.812 Obesity, class 2 (principal); Z68.37 Body mass index [BMI] 37.0-37.9, adult; R73.09 Other abnormal glucose | CPT/HCPCS: 96127 ==

== ENCOUNTER 2025-02-08 07:03 | Outpatient (REF) | payer OTHER, SELFPAY ==
[2025-02-08 10:43] LABS: Hemoglobin A1C 107.3941 umol/L; Total Hemoglobin (HGBA1C) 3610.6008 umol/L
[2025-02-08 10:55] LABS: Alanine Aminotransferase 21 U/L (0-31); Albumin Level 4.1 g/dL (3.5-5.0); Alkaline Phosphatase 53 U/L (39-117); Anion Gap 11 (12-20); Aspartate Amino Transferase 24 U/L (5-31); Blood Urea Nitrogen 10 mg/dL (9-16); Calcium 8.8 mg/dL (8.4-10.2); Carbon Dioxide 26 mmol/L (22-29); Chloride 106 mmol/L (96-108); Estimated Glomerular Filt Rate > 60; Potassium 4.2 mmol/L (3.3-5.1); Sodium 139 mmol/L (135-145); Total Protein 6.8 g/dL (6.5-8.0)
== END 2025-02-08 07:04 | disposition home or self-care (01) ==
LOC: HO.HMGCLDS 07:03
PROVIDERS: PCP Physician Assistant; Visit Provider Physician Assistant
DX: R73.09 Other abnormal glucose (principal)
CPT/HCPCS: 36415; 80053; 83036

== ENCOUNTER 2025-02-14 07:59 | Outpatient (AMB) | payer OTHER, SELFPAY ==
--- NOTE | 2025-02-14 08:02 | MHC.PC.OV ---
Vital Signs 02/14/25 08:03 Height 5 ft 2 in Weight 216 lb 2 oz BMI 39.5 BP 126/84 Blood Pressure Location Lt brachial Position Sitting Pulse 83 Pulse Source Pulse Oximeter Temp 97.5 F Temp Source Temporal Artery Scan Pulse Oximetry (%) 96 Oxygen Delivery Method Room Air Intake Visit Reasons: PE Allergies ibuprofen Allergy (Severe, Verified 02/14/25 08:12) face swelling Medication List - Last Reconciled 02/14/25 by Jarvis Fisher PA-C etonogestrel (Nexplanon) subdermal Tobacco use date assessed: 02/14/25 Dental Screening Dental Screen Date: 02/14/25 Did you have a dental visit in the last 12 months?: Yes Did you have a dental problem in the last 6 months where you did not have access to dental care?: No Was dental information given to patient?: Patient has dentist HPI PE HPI Details Patient is a 39-year-old female here today for a routine annual physical Has been on phentermine to help her kick start weight loss. Concern--> She also reports easy bruising, particularly after scratching mosquito bites, which is a new symptom for her. Her blood levels, including red and white blood cell counts, were normal during the last check a year or two ago. .. Class 2 obesity: Unfortunately patient gained 10 lb since last office visit has been on phentermine for quite some time and unfortunately has not been able to maintain her weight loss. She is interested in returning back to phentermine for few months to reduce her weight below 200 lb. Impaired glucose metabolism: Most recent fasting blood sugar at 100 and A1c at 4.9. 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 at [facility] in his up-to-date with Pap screening Vaccine : UTD With COVID vaccine , UTD td, declines Flu PFSH Surgical History Hx of cholecystectomy Family History Maternal Aunt Breast cancer Father DMII (diabetes mellitus, type 2) Mother High cholesterol Social History Housing: House Alcohol intake: current Alcohol intake frequency: a few times a month Patient Tobacco Use Status: Never used Tobacco e-Cigarette/Vaping Use: Never Used Second Hand Smoke Exposure: No Substance Use Type: Marijuana service: No Current occupational status: employed 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 1. Little interest or pleasure in doing things: not at all 2. Feeling down, depressed, or hopeless: not at all 3. Trouble falling or staying asleep, or sleeping too much: not at all 4. Feeling tired or having little energy: not at all 5. Poor appetite or overeating: not at all 6. Feeling bad about yourself - or that you are a failure or have let yourself or your family down: not at all 7. Trouble concentrating on things, such as reading the newspaper or watching television: not at all 8. Moving or speaking so slowly that other people could have noticed. Or the opposite - being so fidgety or restless that you have been moving around a lot more than usual: not at all 9. Thoughts that you would be better off or of hurting yourself in some way: not at all Total score: 0 Depression Screening Interpretation: Negative Depression Screening Done: Yes 88450 - PHQ-9 Billing: Yes Source: Developed by Drs. Gustavo Juan, China Florian, Eder Jones and colleagues, with an educational gillian from [employer]. Thrive Questionnaire Date Thrive assessed: 02/07/25 I am a: Patient What is your living situation today?: I have a steady place to live Within the past 12 months, did the food you bought not last and you didn't have the money to get more?: Never true Within the past 12 months, did you worry whether your food would run out before you got money to buy more?: Never true Do you have trouble paying for medicines?: No Do you have trouble getting transportation to medical appointments?: No Do you have trouble paying your heating and electricity bill?: No Do you have trouble taking care of your child, family member or friend?: No Do you have trouble with day-to-day activities such as bathing, preparing meals, shopping, managing finances, etc.?: No Are you currently unemployed and looking for a job?: No Are you interested in more education?: No Please select the resources that you would like help with: None Currently or been in a relationship where the following occur: No concerns reported THRIVE Score: 0 AUDIT C Alcohol Use Questionnaire (AUDIT-C) 1. How often do you have a drink containing alcohol?: Monthly or less 2. How many drinks containing alcohol do you have on a typical day when you are drinking?: 1 or 2 3. How often do you have six or more drinks on one occasion?: Never Total Score: 1 ROCCO-7 AMB Questionnaire ROCCO-7 Date ROCCO - 7 assessed: 10/11/24 Feeling nervous, anxious, or on edge: 0 = Not at all Not being able to stop or control worryin = Not at all Worrying too much about different things: 0 = Not at all Trouble relaxin = Not at all Being so restless that it is hard to sit still: 0 = Not at all Becoming easily annoyed or irritable: 0 = Not at all Feeling afraid as if something awful might happen: 0 = Not at all Total ROCCO-7 score (0-4 normal; 5-9 mild; 10-14 moderate; 15-21 severe): 0 Source: Developed by Drs. Gustavo Juan, China Florian, Eder Jones and colleagues, with an educational gillian from [employer]. ROCCO-7 Assessment Billing ROCCO-7 Assessment Tool: ROCCO-7 Assessment 03447 Review of Systems Const Denies body aches, Denies chills, Denies excessive sweating, Denies fatigue, Denies fever(s) and Denies headache(s) Eyes Denies blurry vision ENT Denies dysphagia, Denies vertigo, Denies dizziness, Denies headache(s), Denies hearing loss and Denies tinnitus Card Denies chest pain, Denies chest pain with activity, Denies syncope, Denies irregular heart rhythm and Denies dyspnea Resp Denies chest congestion, Denies cough, Denies hemoptysis, Denies dyspnea and Denies wheezing GI Denies abdominal pain, Denies melena, Denies hematochezia, Denies coffee ground emesis, Denies dysphagia, Denies diarrhea, Denies nausea and Denies vomiting Denies urinary frequency, Denies dysuria, Denies urinary hesitancy and Denies urinary urgency Musc Denies arthralgias, Denies limited range of motion, Denies muscle cramps and Denies muscle weakness Skin/Breast Denies rash and Denies skin ulcer Neuro Denies Abnormal speech present, Denies confusion, Denies vertigo, Denies dizziness, Denies syncope, Denies headache(s), Denies memory loss and Denies seizure-like activity Psych Denies anxiety, Denies confusion, Denies depression, Denies memory loss, Denies panic attacks and Denies paranoia Endo Denies excessive sweating, Denies fatigue, Denies flushing, Denies polydipsia and Denies polyuria Aller/Immun Denies wheezing Physical exam (Primary Care) Vital Signs: Last Vital Signs Temp 97.5 F 02/14/25 08:03 Pulse 83 02/14/25 08:03 BP 126/84 02/14/25 08:03 Pulse Ox 96 02/14/25 08:03 Oxygen Delivery Method Room Air 02/14/25 08:03 BMI result Body Mass Index 39.5 BMI Assessment/Plan discussion: High BMI High, discussed plan: lifestyle, weight reduction, dietary and physical activity Tobacco/Smoking Status: Tobacco use Status Tobacco use date assessed 02/14/25 02/14/25 08:05 Patient Tobacco Use Status Never used Tobacco 02/14/25 08:05 e-Cigarette/Vaping Use Never Used 02/14/25 08:05 PHQ-9: PHQ-9 Score PHQ-9: Total score 0 02/14/25 08:17 Depression Screening Interpretation: Negative Thrive Assessment: Date of Thrive Assessment Date Thrive assessed 02/07/25 02/14/25 08:05 Currently or been in a relationship where the following occur: No concerns reported Const General: cooperative, comfortable, no acute distress, alert and awake; No confusion Orientation/consciousness: oriented to person, oriented to place, patient oriented x3 and No confusion HENMT Head: Yes normocephalic Ears: external ears normal and TM's normal bilaterally Face and sinus: No sinus tenderness Mouth: Normal oral and palatal mucosa present and tongue normal Teeth and gingiva: dentition normal and gingiva normal Throat: Yes posterior oropharynx normal, Yes tonsils normal and Yes uvula midline Eyes Conjunctivae: conjunctivae normal Sclerae: sclerae normal Pupils: Equal, round and reactive pupils present EOM: EOMs intact bilaterally Direct Ophthalmoscopy: No no photophobia Neck Neck: Yes no lymphadenopathy, No tender and Yes no JVD Thyroid: Thyroid normal Carotids: no bruits Chest Chest palpation & inspection: no tenderness Resp Effort & Inspection: normal respiratory effort, no audible wheezes, not labored and no stridor Auscultation: no crackles, no rales, no rhonchi and no wheezes Cardio Jugular venous distension: no JVD Rate: regular rate, not bradycardic and not tachycardic Rhythm: regular rhythm Bruits: no carotid bruits Peripheral pulses: Peripheral pulses 2+ throughout GI Inspection: Yes normal to inspection, No abdominal wall ecchymosis and No visible herniation Palpation (GI): Soft to palpation, nontender, no guarding, not rigid and No hepatosplenomegaly present Auscultation: normoactive bowel sounds General: Yes no CVA tenderness Back/Spine/Pelvis Back: no CVA tenderness and No back tenderness Cervical Spine: cervical ROM normal Thoracic/Lumbar Spine: thoracic and lumbar spine normal to inspection, straight leg raise negative bilaterally, No thoraco-lumbar ROM limited and No lumbar spinal tenderness Skin Lesions: no lesions Rashes: no rashes Wounds: no wounds Neuro General: oriented to person, oriented to place, patient oriented x3, CN's II-XI intact bilaterally and No confusion Cranial nerves: Yes Equal, round and reactive pupils present and Yes Normal accommodation reflex present Cognition (Neuro): normal cognition Speech: No Abnormal speech present Gait exam (Neuro): Normal gait present Motor exam (neuro): 5/5 motor strength present throughout Extrem Right upper extremity: full ROM; no cyanosis Left upper extremity: full ROM; no cyanosis Right lower extremity: no edema Left lower extremity: no edema Psych Appearance: grossly normal Mental Status: mental status grossly normal Affect: normal affect Attitude: cooperative Thought process: Normal thought process present Coding Level of Care Code Est Pt Prev Care 18-39y(61333) Diagnoses Annual physical exam Z00.00 Easy bruising R23.3 Impaired glucose metabolism R73.09 Class 2 obesity E66.812 Additional Codes ROCCO-7 Assessment Billing - ROCCO-7 Assessment Tool: ROCCO-7 Assessment 74866 ([id number]) PHQ-9 - 09858 - PHQ-9 Billing: Yes ([id number]) Assessment & Plan Assessment & Plan (1) Annual physical exam: Code(s): Z00.00 - Encounter for general adult medical examination without abnormal findings Category: Medical Plan: As per HPI (2) Easy bruising: Code(s): R23.3 - Spontaneous ecchymoses Category: Medical Plan: The patient reports easy bruising after scratching mosquito bites. The physician suggested checking blood levels for anemia or thyroid dysfunction as potential causes. (3) Impaired glucose metabolism: Code(s): R73.09 - Other abnormal glucose Category: Medical Plan: Patient has a history of impaired glucose metabolism. Will recheck fasting blood work in A1c. (4) Class 2 obesity: Code(s): E66.812 - Obesity, class 2 Category: Medical Plan: The patient has experienced a weight increase from 206 to 216 pounds since the last visit. Phentermine was previously effective but discontinued due to cardiovascular risks and potential for habit formation. The plan is to resume phentermine with a couple of refills for two to three months to aid in weight reduction. Orders: Orders IRON PROFILE Today D50.9 - Iron deficiency anemia, unspecified, R23.3 - Spontaneous ecchymoses Complete Blood Count no Diff Today R23.3 - Spontaneous ecchymoses TSH reflex Free T4 Today R23.3 - Spontaneous ecchymoses Medications: New phentermine must administer 30 minutes before or 1-2 hours after breakfast 37.5 mg PO DAILY 28 tabs 3RF 28 days E66.812 - Obesity, class 2
[2025-02-14 08:03] VITALS: BP 126/84; PULSE 83; TEMP 36.4; O2SAT 96; BMI 39.5
== END 2025-02-14 08:31 | disposition home or self-care (01) ==
LOC: HO.HMCH 08:00
PROVIDERS: PCP Physician Assistant; Visit Provider Physician Assistant
DX: Z00.00 Encounter for general adult medical examination without abnormal findings (principal); E66.812 Obesity, class 2; Z68.39 Body mass index [BMI] 39.0-39.9, adult; R23.3 Spontaneous ecchymoses; R73.09 Other abnormal glucose

== ENCOUNTER → 2025-02-14 07:59 | Outpatient (BNVA) | payer OTHER, SELFPAY | PROVIDERS: PCP Physician Assistant; Visit Provider Physician Assistant | DX: Z00.00 Encounter for general adult medical examination without abnormal findings (principal); R23.3 Spontaneous ecchymoses; R73.09 Other abnormal glucose; E66.812 Obesity, class 2; Z68.39 Body mass index [BMI] 39.0-39.9, adult; Z13.31 Encounter for screening for depression | CPT/HCPCS: 96127 ==

== ENCOUNTER → 2025-04-25 08:13 | Outpatient (REF) | payer OTHER, SELFPAY ==
--- NOTE | 2025-04-25 08:16 | ECG_ITS ---
Test Reason : PALPITATIONS Blood Pressure : */* mmHG Vent. Rate : 90 BPM Atrial Rate : 90 BPM P-R Int : 122 ms QRS Dur : 78 ms QT Int : 366 ms P-R-T Axes : 52 43 16 degrees QTcB Int : 447 ms Normal sinus rhythm Normal ECG No previous ECGs available Referred By: Jarvis Fisher Electronically Signed By: PARRISH BARGER MD
== END ==
LOC: HO.CARD 08:13
PROVIDERS: Visit Provider Physician Assistant
DX: R00.2 Palpitations (principal)
CPT/HCPCS: 93005

== ENCOUNTER → 2025-04-25 08:16 | Outpatient (BNV) | payer OTHER, SELFPAY | PROVIDERS: Visit Provider Internal Medicine Cardiovascular Disease | DX: R00.2 Palpitations (principal) | CPT/HCPCS: 93010 ==

== ENCOUNTER 2025-05-18 07:34 | Outpatient (REF) | payer OTHER, SELFPAY ==
[2025-05-18 11:09] LABS: Hematocrit 42.3 % (37.0-47.0); Hemoglobin 13.6 g/dl (12.0-16.0); Mean Corpuscular HGB Conc 32.2 g/dl (31.0-35.0); Mean Corpuscular Hemoglobin 29.8 pg (27.0-33.0); Mean Corpuscular Volume 92.6 fL (80.0-98.0); NRBC Abs Auto 0.000 X10*3/uL (0.0-0.012); NRBC Pct Auto 0.0 /100WBC (0.0-0.2); Platelet Count 310 X10*3/uL (160-400); Red Blood Count 4.57 X10*6/uL (4.20-5.50); White Blood Count 8.3 X10*3/uL (4.8-10.8)
[2025-05-18 11:44] LABS: Iron 75 mcg/dL (30-160); Percent Iron Saturation 28 % (15-50); Total Iron Binding Capacity 267 mcg/dL (228-428); Unsaturated Iron Binding 192 ug/dL
== END 2025-05-18 07:35 | disposition home or self-care (01) ==
LOC: HO.HMGCLDS 07:34
PROVIDERS: PCP Physician Assistant; Visit Provider Physician Assistant
DX: R23.3 Spontaneous ecchymoses (principal); D50.9 Iron deficiency anemia, unspecified; E66.812 Obesity, class 2; R73.09 Other abnormal glucose; Z83.42 Family history of familial hypercholesterolemia; Z68.38 Body mass index [BMI] 38.0-38.9, adult; Z79.899 Other long term (current) drug therapy
CPT/HCPCS: 36415; 83540; 84443; 85027

== ENCOUNTER 2025-05-18 08:42 | Outpatient (AMB) | payer OTHER, SELFPAY ==
--- NOTE | 2025-05-18 08:46 | MHC.PC.OV ---
Vital Signs 05/18/25 08:48 Height 5 ft 2 in Weight 209 lb 2 oz BMI 38.2 BP 110/70 Blood Pressure Location Lt brachial Position Sitting Pulse 78 Pulse Source Pulse Oximeter Pulse Oximetry (%) 96 Oxygen Delivery Method Room Air Intake Visit Reasons: f/u weight check Accompanied by: Self / Same As Patient Allergies ibuprofen Allergy (Severe, Verified 05/18/25 09:02) face swelling Medication List - Last Reconciled 05/18/25 by Jarvis Fisher PA-C etonogestrel (Nexplanon) subdermal Tobacco use date assessed: 05/18/25 Dental Screening Dental Screen Date: 05/18/25 Did you have a dental visit in the last 12 months?: Yes Did you have a dental problem in the last 6 months where you did not have access to dental care?: No Was dental information given to patient?: Patient has dentist HPI f/u weight check HPI Details Patient is a 39-year-old female here today for a follow-up visit. Has been on phentermine to help her kick start weight loss. .. Class 2 obesity: Has lost weight since last office visit. Unfortunately has developed side effects to phentermine with palpitations. Has been sent for EKG though did show normal rhythm. Since stopping phentermine her palpitations have gotten much less evident. Impaired glucose metabolism: Most recent fasting blood sugar at 100 and A1c at 4.9. 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 occupational exposures/hazards: No Cognitive needs: No Hearing needs: No Vision needs: No Questionnaire Thrive Questionnaire Date Thrive assessed: 02/07/25 I am a: Patient What is your living situation today?: I have a steady place to live Within the past 12 months, did the food you bought not last and you didn't have the money to get more?: Never true Within the past 12 months, did you worry whether your food would run out before you got money to buy more?: Never true Do you have trouble paying for medicines?: No Do you have trouble getting transportation to medical appointments?: No Do you have trouble paying your heating and electricity bill?: No Do you have trouble taking care of your child, family member or friend?: No Do you have trouble with day-to-day activities such as bathing, preparing meals, shopping, managing finances, etc.?: No Are you currently unemployed and looking for a job?: No Are you interested in more education?: No Please select the resources that you would like help with: None Currently or been in a relationship where the following occur: No concerns reported THRIVE Score: 0 AUDIT C Alcohol Use Questionnaire (AUDIT-C) 1. How often do you have a drink containing alcohol?: Monthly or less 2. How many drinks containing alcohol do you have on a typical day when you are drinking?: 1 or 2 3. How often do you have six or more drinks on one occasion?: Never Total Score: 1 ROCCO-7 AMB Questionnaire ROCCO-7 Date ROCCO - 7 assessed: 10/11/24 Source: Developed by Drs. Gustavo Juan, China Florian, Eder Jones and colleagues, with an educational gillian from [employer]. Review of Systems Const Denies headache(s) Eyes Denies loss of vision ENT Denies vertigo, Denies dizziness, Denies headache(s) and Denies sore throat Card Denies chest pain, Denies leg edema and Denies lightheadedness Resp Denies cough, Denies hemoptysis and Denies wheezing GI Denies abdominal pain, Denies melena, Denies constipation, Denies diarrhea and Denies vomiting Denies urinary frequency, Denies dysuria and Denies urinary urgency Musc Denies arthralgias, Denies joint swelling, Denies numbness and Denies tingling Neuro Denies Abnormal speech present, Denies behavioral changes, Denies vertigo, Denies dizziness, Denies headache(s), Denies loss of vision, Denies memory loss, Denies numbness and Denies tingling Psych Denies anxiety, Denies behavioral changes, Denies depression, Denies memory loss and Denies panic attacks Jonathan/Lymph Denies easy bleeding and Denies easy bruising Aller/Immun Denies wheezing Physical exam (Primary Care) Vital Signs: Last Vital Signs Pulse 78 05/18/25 08:48 BP 110/70 05/18/25 08:48 Pulse Ox 96 05/18/25 08:48 Oxygen Delivery Method Room Air 05/18/25 08:48 BMI result Body Mass Index 38.2 Tobacco/Smoking Status: Tobacco use Status Tobacco use date assessed 05/18/25 05/18/25 08:59 Patient Tobacco Use Status Never used Tobacco 05/18/25 08:47 e-Cigarette/Vaping Use Never Used 05/18/25 08:47 Thrive Assessment: Date of Thrive Assessment Date Thrive assessed 02/07/25 05/18/25 08:47 Currently or been in a relationship where the following occur: No concerns reported Const General: healthy appearing, no acute distress, alert and awake Nutritional Appearance: well nourished Orientation/consciousness: oriented to person, oriented to place and oriented to time HENMT Ears: TM's normal bilaterally General nose exam: Normal nasal mucous membranes and turbinates present Eyes Conjunctivae: conjunctivae normal Sclerae: sclerae normal Pupils: Equal, round and reactive pupils present Neck Neck: Yes no lymphadenopathy and Yes no JVD Thyroid: Thyroid normal Carotids: no bruits Resp Effort & Inspection: normal respiratory effort and not tachypneic Auscultation: no crackles, no rales, no rhonchi and no wheezes Cardio Rate: regular rate Rhythm: regular rhythm Heart sounds: no murmurs and normal S1 and S2 GI Palpation (GI): Soft to palpation, nontender, no hepatomegaly and no splenomegaly Auscultation: normal bowel sounds Skin General skin exam: no rashes or lesions noted and dry skin Neuro General: oriented to person, oriented to place and oriented to time Cranial nerves: Yes Equal, round and reactive pupils present Speech: No Abnormal speech present Gait exam (Neuro): Normal gait present Motor exam (neuro): no tremor noted Extrem Right upper extremity: full ROM Left upper extremity: full ROM Right lower extremity: full ROM; no edema Left lower extremity: full ROM; no edema Psych Mental Status: mental status grossly normal Speech and movement: Normal speech and movement present Affect: normal affect Attitude: cooperative Thought process: Normal thought process present Coding Level of Care Code Est Pt Level 4 (48529) Diagnoses Impaired glucose metabolism R73.09 Class 2 obesity E66.812 Assessment & Plan Assessment & Plan (1) Impaired glucose metabolism: Code(s): R73.09 - Other abnormal glucose Category: Medical Plan: Patient has a history of impaired glucose metabolism. Will recheck fasting blood work in A1c. (2) Class 2 obesity: Code(s): E66.812 - Obesity, class 2 Category: Medical Plan: Patient does understand her BMI is over 35 and will continue working on better eating habits and being more physically active. We discussed alternative weight loss medications, such as GLP-1 agonists (Wegovy, Zepbound), but noted the difficulty in obtaining insurance authorization without comorbidities like type 2 diabetes or sleep apnea. A referral to a weight loss management clinic was offered as a potential pathway to get these medications covered, and the patient will consider this option. Orders: Orders Lipid Panel Today Z83.42 - Family history of familial hypercholesterolemia Hemoglobin A1c Today R73.09 - Other abnormal glucose Comprehensive [place]. Panel Fast Today R73.09 - Other abnormal glucose
[2025-05-18 08:48] VITALS: BP 110/70; PULSE 78; O2SAT 96; BMI 38.2
== END 2025-05-18 09:13 | disposition home or self-care (01) ==
LOC: HO.HMCH 08:43
PROVIDERS: PCP Physician Assistant; Visit Provider Physician Assistant
DX: R73.09 Other abnormal glucose (principal); E66.812 Obesity, class 2; Z68.38 Body mass index [BMI] 38.0-38.9, adult